=== PATIENT | male | born 1975 | race Caucasian/White ===

== ENCOUNTER 2018-06-16 14:40 | Emergency (ER) | payer MEDICAID ==
[~2018-06-16] VITALS: Ht 165.1 cm; Wt 85.0 kg
[2018-06-16 15:15] VITALS: BP 160/90
--- NOTE | 2018-06-16 15:15 | NUR ---
TO BED # 1 AMBULATORY, REPORT GIVEN TO AMANUEL MILLIGAN
--- NOTE | 2018-06-16 15:20 | NUR ---
PT PRESENT TO ED DUE TO RECTAL PAIN X 3 DAYS; DENIES ANY TRAUMA;HEMORHOIDS NOTED;NO BLEEDING;DENIES ANY MEDICAL HX;NO ACUTE DISTRESS NOTED;NEEDS ATTENDED;SAFETY MEASURES INSTITUTED;ALL MONITORS IN PLACED;ER MD WILL BE NOTIFIED OF PT'S CONDITION;
--- NOTE | 2018-06-16 16:40 | NUR ---
PT. RESTING COMFORTABLY IN BED, RR EVEN AND UNLABORED . WILL CONTINUE TO MONITOR. ER MD MEADOWS IN ROOM EXAMINING PATIENT.
[2018-06-16 16:55] VITALS: BP 108/85
--- NOTE | 2018-06-16 16:55 | NUR ---
Patient discharged with v/s stable. Written and verbal after care instructions given and explained. Patient alert, oriented and verbalized understanding of instructions. Ambulatory with steady gait. All questions addressed prior to discharge. ID band removed. Patient advised to follow up with PMD. Rx of MOTRIN 800MG, COLACE 100MG, ANUSIL HC RECTAL CREAM given. Patient educated on indication of medication including possible reaction and side effects. Opportunity to ask questions provided and answered.
== END 2018-06-16 16:55 | disposition home or self-care (01) ==
LOC: MED 14:40
DX: K64.9 Unspecified hemorrhoids (principal)
CPT/HCPCS: 99283

== ENCOUNTER 2018-07-02 09:52 | Emergency (ER) | payer MEDICAID ==
[~2018-07-02] VITALS: Ht 170.2 cm; Wt 82.7 kg
[2018-07-02 10:00] VITALS: BP 134/87
--- NOTE | 2018-07-02 10:05 | NUR ---
PT AMBULATES TO BED 9
--- NOTE | 2018-07-02 10:06 | NUR ---
Kar guillaume in [place] - 07/02/18 at 1007 by [facility] PT AMBULATES TO BED 6
--- NOTE | 2018-07-02 10:13 | NUR ---
PT C/O LT EAR PAIN X 4 DAYS; TOOK TYLENOL WITH NO RELIEF. PATIENT STATES HE HEARD A LOUD POP AND HAS BEEN IN PAIN SINCE MONDAY. PATIENT STATES PAIN OF 10/10 AT THIS TIME; VSS; PATIENT POSITIONED FOR COMFORT; HOB ELEVATED; BEDRAILS UP X1; BED DOWN. ER MD MADE AWARE OF PT STATUS.
--- NOTE | 2018-07-02 10:14 | NUR ---
Patient being evaluated by physician at bedside.
[2018-07-02] MEDS ORDERED: KETOROLAC 60 MG/2 ML VIAL IM ONE (10:20)
--- NOTE | 2018-07-02 10:57 | NUR ---
Patient discharged with v/s stable. Written and verbal after care instructions given and explained. Patient alert, oriented and verbalized understanding of instructions. Ambulatory with steady gait. All questions addressed prior to discharge. ID band removed. Patient advised to follow up with PMD. Rx of MOTRIN AND CORTISPORIN OTIC DROPS given. Patient educated on indication of medication including possible reaction and side effects. Opportunity to ask questions provided and answered.
[2018-07-02 11:00] VITALS: BP 134/87
== END 2018-07-02 10:57 | disposition home or self-care (01) ==
LOC: MED 09:52
DX: H60.92 Unspecified otitis externa, left ear (principal); H72.92 Unspecified perforation of tympanic membrane, left ear; F17.200 Nicotine dependence, unspecified, uncomplicated
CPT/HCPCS: 96372; 99283; J1885

== ENCOUNTER 2018-07-03 09:00 | Emergency (ER) | payer MEDICAID ==
[~2018-07-03] VITALS: Ht 175.3 cm; Wt 81.6 kg
[2018-07-03 09:05] VITALS: BP 137/83
--- NOTE | 2018-07-03 09:06 | NUR ---
PT. CAME INTO THE ED DUE TO L EAR PAIN. PT.STATES " I CAME YESTERDAY AND THEY GAVE ME SOME DROPS AND PAIN MEDICATION THEY TOLD ME I HAD A RUPTURED MEMBRANE IN MY EAR, BUT THE PAIN MEDICATION IS NOT WORKING I FEEL LIKE MY HEAD IS GOING TO EXPLODE". 10/10 L EAR PAIN THAT IS THROBBING X 5 DAYS AND RADIATES TO L SIDE OF THROAT. DENIES DIZZYNESS, STEADY GAIT UPON AMBULATION, DENIES FEVER, DENIES N/V/D. ER MD NOTIFIED. WILL CONTINUE TO MONITOR. SAFETY PRECAUTIONS IMPLEMENTED. WILL CONTINUE TO MONITOR.
--- NOTE | 2018-07-03 09:09 | NUR ---
PT AMBULATES TO BED 9
--- NOTE | 2018-07-03 09:55 | NUR ---
Patient being evaluated by physician at bedside.
[2018-07-03] MEDS ORDERED: HYDROcodone/APAP 5/325 MG 1 TAB TAB PO ONE (10:00)
[2018-07-03 10:55] VITALS: BP 132/81
--- NOTE | 2018-07-03 10:55 | NUR ---
Patient discharged with v/s stable. Written and verbal after care instructions given and explained. Patient alert, oriented and verbalized understanding of instructions. Ambulatory with steady gait. All questions addressed prior to discharge. ID band removed. Patient advised to follow up with PMD. Rx of NORCO & AMOXY given. Patient educated on indication of medication including possible reaction and side effects. Opportunity to ask questions provided and answered.
== END 2018-07-03 10:55 | disposition home or self-care (01) ==
LOC: MED 09:00
DX: H72.92 Unspecified perforation of tympanic membrane, left ear (principal); H60.92 Unspecified otitis externa, left ear
CPT/HCPCS: 99283

== ENCOUNTER 2019-05-06 10:47 | Emergency (ER) | payer MEDICAID ==
[~2019-05-06] VITALS: Ht 167.6 cm; Wt 81.4 kg
[2019-05-06 11:06] VITALS: BP 135/97
[2019-05-06] MEDS ORDERED: ONDANSETRON 4 MG ODT PO ONE (11:10)
[2019-05-06 13:00] VITALS: BP 95/53
== END 2019-05-06 13:00 | disposition home or self-care (01) ==
LOC: MED 10:47
DX: R11.2 Nausea with vomiting, unspecified (principal); R19.7 Diarrhea, unspecified
CPT/HCPCS: 99283; Q0162

== ENCOUNTER 2022-03-08 07:27 | Emergency (ER) | payer SELFPAY ==
[~2022-03-08] VITALS: Ht 166.4 cm; Wt 82.6 kg
[2022-03-08 07:38] VITALS: BP 146/80
--- NOTE | 2022-03-08 07:41 | NUR ---
PT AMB TO BED 8
--- NOTE | 2022-03-08 07:48 | NUR ---
VISION TEST BOTH 20/20 R 20/20 L 20/25
[2022-03-08] MEDS ORDERED: FLUORESCEIN OPTH STRIP 1 MG OP ONE (08:15)
[2022-03-08] MEDS ORDERED: FLUORESCEIN OPTH STRIP 1 MG ONE (08:16)
--- NOTE | 2022-03-08 08:18 | NUR ---
ER AT BEDSIDE
[2022-03-08] MEDS ORDERED: KETO5SOL7 OP (08:26)
[2022-03-08 08:31] VITALS: BP 146/80
--- NOTE | 2022-03-08 08:31 | NUR ---
Patient discharged with v/s stable. Written and verbal after care instructions given and explained. Patient alert, oriented and verbalized understanding of instructions. Ambulatory with steady gait. All questions addressed prior to discharge. ID band removed. Patient advised to follow up with PMD. Rx of KETOTIFEN FUMARATE given. Patient educated on indication of medication including possible reaction and side effects. Opportunity to ask questions provided and answered.
--- NOTE | 2022-03-08 08:32 | NUR ---
Chart checked and completed. The patient's care was reviewed and supervised by Rosa Elena Cameron RN.
== END 2022-03-08 08:31 | disposition home or self-care (01) ==
LOC: MED 07:27
DX: H11.003 Unspecified pterygium of eye, bilateral (principal)
CPT/HCPCS: 99283